=== PATIENT | female | born 1960 | race Caucasian/White ===

== ENCOUNTER 2020-12-22 16:06 | Emergency (ER) | payer OTHER ==
[~2020-12-22] VITALS: Ht 160 cm; Wt 48.5 kg
[2020-12-22 16:08] VITALS: BP 116/64
--- NOTE | 2020-12-22 16:15 | NUR ---
60 yo female c/o left wrist pain s/p fall last night. 11/04, sharp "pins and needles". denies head trauma, LOC. pt took 10mg valium last night and 5mg valium at 6am today. pt also took tylenol at 10am this morning with little relief. pmh: htn, hld, bipolar meds: valium, zoloft, unrecalled meds allergy: aspirin
[2020-12-22] MEDS ORDERED: KETOROLAC 15 MG/ML VIAL IM ONE (16:25)
--- NOTE | 2020-12-22 16:36 | NUR ---
xray at bedside
[2020-12-22] MEDS ORDERED: NAPR-54 PO (16:38)
--- NOTE | 2020-12-22 17:32 | NUR ---
applied wrist brace to left wrist without any issues
[2020-12-22 17:36] VITALS: BP 116/64
== END 2020-12-22 17:36 | disposition home or self-care (01) ==
LOC: MED 16:06
DX: S60.212A Contusion of left wrist, initial encounter (principal); I10 Essential (primary) hypertension; Z88.6 Allergy status to analgesic agent; W18.39XA Other fall on same level, initial encounter; Y93.89 Activity, other specified; Y92.89 Other specified places as the place of occurrence of the external cause; Y99.8 Other external cause status
CPT/HCPCS: 29125; 73110; 96372; 99283; J1885; Q0092